=== PATIENT | female | born 1955 | race African-American/Black ===

== ENCOUNTER 2016-11-13 11:51 | Emergency (ER) | payer OTHER ==
[~2016-11-13 11:51] MED LIST: ADULT LOW DOSE81 MG PO; ALPHAGAN P OP SO5 ML OP; BRILINTA90 MG PO; LATANOPROST2.5 ML OP; LIPITOR TAB 2020 MG PO; METOPROLOL TART25 MG PO; NITROGLYCERIN0.4 MG SL; NORVASC 5 MG TAB5 MG PO
== END 2016-11-13 12:35 | disposition home or self-care (01) ==
LOC: ER1 11:51
DX: S46.811A Strain of other muscles, fascia and tendons at shoulder and upper arm level, right arm, initial encounter (principal); I10 Essential (primary) hypertension; E78.5 Hyperlipidemia, unspecified; F17.210 Nicotine dependence, cigarettes, uncomplicated; Z95.5 Presence of coronary angioplasty implant and graft; Z79.02 Long term (current) use of antithrombotics/antiplatelets; Z79.82 Long term (current) use of aspirin; Z79.899 Other long term (current) drug therapy; Z88.5 Allergy status to narcotic agent; X58.XXXA Exposure to other specified factors, initial encounter
CPT/HCPCS: 73030; 99283

== ENCOUNTER → 2020-10-23 | Outpatient (CLI) | payer MEDICARE, OTHER ==
[~2020-10-23] MED LIST changes: +ELIQUIS2.5 MG PO; +LIPITOR40 MG PO; +MOBIC15 MG PO; +NORCO 5-325 TA1 EACH PO; +PERCOCET 5/325 T1 EA PO; +PRINIVIL5 MG PO; +VITAMIN D2000 UNI1 PO
== END ==
LOC: HEART 5 10:23
DX: R42 Dizziness and giddiness (principal); R00.2 Palpitations; R06.02 Shortness of breath

== ENCOUNTER → 2020-11-20 | Outpatient (CLI) | payer MEDICARE, OTHER | LOC: HEART 5 13:15 | DX: I25.10 Atherosclerotic heart disease of native coronary artery without angina pectoris (principal); I08.3 Combined rheumatic disorders of mitral, aortic and tricuspid valves | CPT/HCPCS: 93306 ==

== ENCOUNTER → 2021-08-07 | Outpatient (CLI) | payer MEDICARE, OTHER | LOC: HEART 5 08-06 10:30 | DX: R42 Dizziness and giddiness (principal); R00.2 Palpitations; R06.02 Shortness of breath ==

== ENCOUNTER → 2021-08-28 | Outpatient (CLI) | payer MEDICARE, OTHER | LOC: EXRD 13:17 → MAMO 13:17 | DX: Z12.31 Encounter for screening mammogram for malignant neoplasm of breast (principal); Z78.0 Asymptomatic menopausal state | CPT/HCPCS: 77063; 77067; 77080 ==

== ENCOUNTER → 2021-09-25 | Outpatient (CLI) | payer MEDICARE, OTHER | LOC: MAMO 09-19 10:30 → US 09-19 11:00 → MAMO 10:47 → US 11:30 | DX: R92.8 Other abnormal and inconclusive findings on diagnostic imaging of breast (principal) | CPT/HCPCS: 77065 ==